=== PATIENT | female | born 1995 | race Two or more races ===

== ENCOUNTER 2020-03-11 19:28 | Emergency (ER) | payer BC ==
[2020-03-11] MEDS ORDERED: Albuterol 8 GM Inhaler INH ONE (20:03)
[2020-03-11] MEDS ORDERED: Azithromycin 250 MG Tab PO ONE (20:05)
[2020-03-11] MEDS ORDERED: Albuterol HFA 18 Gm Inhaler ONE (20:17)
--- NOTE | 2020-03-11 20:34 | CR ---
Chest: 2 views of the chest were obtained. Comparison: No previous chest imaging is available. Heart size and mediastinum are normal. Lungs are clear with no acute parenchymal change. Bony structures are within normal limits. Impression: 1. Nothing acute is appreciated on 2 view chest x-ray. Diagnostic code #1 This report was dictated in MDT
--- NOTE | 2020-03-11 20:52 | EDM.PDOC ---
ED HPI GENERAL MEDICAL PROBLEM - General Chief Complaint: Respiratory Problem Stated Complaint: CHEST PAIN, TROUBLE BREATHING Time Seen by Provider: 03/11/20 19:42 - History of Present Illness INITIAL COMMENTS - FREE TEXT/NARRATIVE: HISTORY AND PHYSICAL: History of present illness: This is a 24-year-old female with no significant past medical history who presents ER today complaining of cough nonproductive for 1 week with shortness of breath and pleuritic chest pain. Patient reports tactile fevers, shakes, chills. Patient denies any nausea, vomiting, diarrhea. Patient reports rhinorrhea and some shortness of breath. Patient denies any sore throat. Patient reports chest pain with cough and deep inspiration. Patient denies any dysuria frequency urgency. Patient denies any abdominal pain. Patient denies any hemoptysis. Patient reports that she works at [employer]. Patient denies any history of hypertension, diabetes, liver, lung, kidney problems. Patient denies any alcohol or drugs. Patient reports that she smokes 7 cigarettes daily. Patient reports she does have an allergy to NSAIDs where she has difficulty breathing. Patient's last menstrual period was 4 days ago. Patient reports that she had a coronavirus test 1 week ago and is refusing a repeat coronavirus test here in the ED. She reports that she had a coronavirus test after her symptoms started a week ago. Review of systems: As per history of present illness and below otherwise all systems reviewed and negative. Past medical history: As per history of present illness and as reviewed below otherwise noncontributory. Surgical history: As per history of present illness and as reviewed below otherwise noncontributory. Social history: No reported history of drug or alcohol abuse. Family history: As per history of present illness and as reviewed below otherwise noncontributory. Physical exam: HEENT: Atraumatic, normocephalic, pupils reactive, negative for conjunctival pallor or scleral icterus, mucous membranes moist, throat clear, neck supple, nontender, trachea midline. Lungs: Clear to auscultation, breath sounds equal bilaterally, chest nontender. End expiratory wheezing Heart: S1S2, regular, negative for clicks, rubs, or JVD. Abdomen: Soft, nondistended, nontender. Negative for masses or hepatosplenomegaly. Negative for costovertebral tenderness. Pelvis: Stable nontender. Genitourinary: Deferred. Rectal: Deferred. Extremities: Atraumatic, negative for cords or calf pain. Neurovascular unremarkable. Neuro: Awake, alert, oriented. Cranial nerves II through XII unremarkable. Cerebellum unremarkable. Motor and sensory unremarkable throughout. Exam nonfocal. Diagnostics: Chest Xray: Normal cardiac silhouette No infiltrates or effusions identified. No PTX No evidence of acute bony fracture. As interpreted by ER MD: [employer]: Albuterol MDI Zithromax Z-Evangelista Assessment and plan: This is a 24-year-old female who presents ER today secondary to cough and URI symptoms. Patient has been given an albuterol MDI as well as Zithromax Z-Evangelista. Patient has been instructed to follow-up with her primary care doctor for further evaluation and management. Patient's chest x- ray is clear without any evidence of pneumonia. Patient's pulse ox is 99% on room air. Reassessment at the time of disposition demonstrates that the patient is in no acute distress. The patient has remained stable throughout the entire ED visit and is without objective evidence for acute process requiring urgent intervention or hospitalization. The patient is stable for discharge, counseling is provided as documented above, discussed symptomatic treatment and specific conditions for return. I have spoken with the patient/caregive and discussed todays findings, in addition to providing specific details for the plan of care. Questions are answered and there is agreement with the plan. chest Pain Score (Numeric/FACES): 4 - Related Data Allergies Allergy/AdvReac Type Severity Reaction Status Date / Time NSAIDS (Non-Steroidal Allergy Airway Verified 03/11/20 19:42 Anti-Inflamma Tightness Home Meds: Home Meds Azithromycin [Zithromax] 250 mg PO DAILY #4 tablet 03/11/20 [Rx] Sertraline [Zoloft] 03/11/20 [History] buPROPion [Wellbutrin] 03/11/20 [History] Past Medical History - Past Health History Medical/Surgical History: Denies Medical/Surgical History Social & Family History - Tobacco Use Smoking Status *Q: Current Every Day Smoker Years of Tobacco use: 3 Packs/Tins Daily: 0.5 - Caffeine Use Caffeine Use: Reports: None - Recreational Drug Use Recreational Drug Use: No ED ROS GENERAL - Review of Systems Review Of Systems: See Below ED EXAM, GENERAL - Physical Exam Exam: See Below Course - Vital Signs Last Recorded V/S: Last Vital Signs Temp 98.1 F 03/11/20 19:35 Pulse 83 03/11/20 20:30 Resp 20 03/11/20 20:30 BP 151/69 H 03/11/20 20:30 Pulse Ox 97 03/11/20 20:30 - Orders/Labs/Meds Orders: Active Orders 24 hr Category Date Time Status RT Post Treatment Assessment [RC] Click to Edit Care 03/11/20 20:04 Active RT Pre-Treatment Assessment [RC] Click to Edit Care 03/11/20 20:04 Active Meds: Medications Discontinued Medications Generic Name Dose Route Start Last Admin Trade Name Kirkq PRN Reason Stop Dose Admin Albuterol 2 gm 03/11/20 20:03 03/11/20 20:27 Ventolin Hfa INH 03/11/20 20:04 Not Given ONETIME ONE Albuterol Confirm 03/11/20 20:17 03/11/20 20:27 Ventolin Hfa Administered 03/11/20 20:18 2 puff Dose Administration 18 gm .ROUTE .STK-MED ONE Azithromycin 500 mg 03/11/20 20:05 03/11/20 20:25 Zithromax PO 03/11/20 20:06 500 mg Q24H ONE Administration Departure - Departure Time of Disposition: 20:51 Disposition: Home, Self-Care 01 Condition: Good Clinical Impression: Respiratory infection, upper - Discharge Information Instructions: Upper Respiratory Infection, Adult, [id number] Forms: ED Department Discharge Additional Instructions: You have been seen and evaluated in the ER for your cough. You will be started on a Z-Evangelista as an antibiotic to treat your infection. You are also given a alb uterol inhaler to use. You can use 2 puffs every 6 hours as needed for wheezing or shortness of breath. Please make an appointment to see your primary care doctor within the next week to be reevaluated. Please return to the ER if you start having worsening symptoms, worsening shortness of breath or any new or concerning symptoms. The following information is given to patients seen in the emergency department who are being discharged to home. This information is to outline your options for follow-up care. We provide all patients seen in our emergency department with a follow-up referral. The need for follow-up, as well as the timing and circumstances, are variable depending upon the specifics of your emergency department visit. If you don't have a primary care physician on staff, we will provide you with a referral. We always advise you to contact your personal physician following an emergency department visit to inform them of the circumstance of the visit and for follow-up with them and/or the need for any referrals to a consulting specialist. The emergency department will also refer you to a specialist when appropriate. This referral assures that you have the opportunity for follow-up care with a specialist. All of these measure are taken in an effort to provide you with optimal care, which includes your follow-up. Under all circumstances we always encourage you to contact your private physician who remains a resource for coordinating your care. When calling for follow-up care, please make the office aware that this follow-up is from your recent emergency room visit. If for any reason you are refused follow-up, please contact the [facility] Emergency Department at and asked to speak to the emergency department charge nurse. Sepsis Event Note (ED) - Evaluation Sepsis Screening Result: No Definite Risk - Focused Exam Vital Signs: Vital Signs Temp Pulse Resp BP Pulse Ox 03/11/20 20:30 83 20 151/69 H 97 03/11/20 19:35 98.1 F 89 18 149/81 H 96 - My Orders Last 24 Hours: My Active Orders 03/11/20 20:04 RT Post Treatment Assessment [RC] Click to Edit RT Pre-Treatment Assessment [RC] Click to Edit - Assessment/Plan Last 24 Hours: My Active Orders 03/11/20 20:04 RT Post Treatment Assessment [RC] Click to Edit RT Pre-Treatment Assessment [RC] Click to Edit
== END 2020-03-11 21:40 | disposition home or self-care (01) ==
LOC: MW.ED 19:28
DX: J06.9 Acute upper respiratory infection, unspecified (principal); F17.210 Nicotine dependence, cigarettes, uncomplicated; Z88.6 Allergy status to analgesic agent
CPT/HCPCS: 71046; 93005; 99285; A9270; 99284; J3535-GY